=== PATIENT | male | born 1970 | race Caucasian/White ===

== ENCOUNTER → 2018-06-28 | Outpatient (CLI) | payer SELFPAY ==
--- NOTE | 2018-06-28 15:26 | PCVCIMAG ---
APPROVED REPORT Study performed: 06/28/2018 10:55:49 Exam: Stress Echocardiogram Indication: Chest pain , Hypertension Patient Location: Echo lab Stress Nurse: Emily Panchal RN Room #: 2 Status: routine Ht: 5 ft 11 in HR: 80 bpm BP: 118/86 mmHg Rhythm: NSR Medical History Medical History: HTN, Dyslipidemia Cardiac Risk Factors: HTN, FHX of CAD Pretest Chest Pain Characteristics: No chest pain Exercise History: Sedentary Procedure The patient underwent an Exercise Stress Test using the Josiah Protocol. Blood pressure, heart rate, and EKG were monitored. An Echocardiogram was performed by data acquisition technician in four stages in quad fashion. At peak stress, four selected images were obtained and placed side by side with resting images for comparison. Stress Test Details Stress Test: Exercise stress testing was performed using a Josiah protocol. HR Resting HR: 80 bpmMax Heart Rate (APMHR): 172 bpm Max HR Achieved: 155 bpmTarget HR (85% APMHR): 146 bpm % of APMHR: 90 Recovery HR: 96 bpm HR response to stress: Normal HR response to stress BP Resting BP: 118/86 mmHg Max BP: 200/100 mmHg Recovery BP: 136/86 mmHg BP response to stress: Normal blood pressure response to stress. ECG Resting ECG: Sinus Rhythm Stress ECG: Sinus Rhythm ST Change: Non-ischemic Arrhythmia: One PVC couplet Recovery ECG: Sinus Rhythm Recovery ST Change: Non-ischemic Recovery Arrhythmia: None Clinical Reason for Termination: Maximal effort Stress Symptoms: fatigu Exercise duration: 7 min 31 sec Exercise capacity: 10.1 METs Overall Exercise Capacity for Age: Poor Scale: Sedentary Angina Score: None No complications. Stress ECG Conclusion The patient exercised according to the JOSIAH protocol for 7:31 mins; achieving a work level of 10.1 METS. The resting heart rate of 80 bpm elva to a maximum heart rate of 155 bpm. This value represent 90% of the maximal, age-predicted heart rate. The resting blood pressure of 118/86 mmHg, elva to a maximum blood pressure of 200/100 mmHg. The exercise test was stopped due to fatigue. Pre-Stress Echo The resting Echocardiogram showed normal left ventricular contractility with an estimated Ejection Fraction of about 55-60%. Normal wall motion in all segments on baseline images. Post-Stress Echo The stress Echocardiogram showed normal left ventricular contractility with an estimated Ejection Fraction of about 65-70%. Normal augmentation of wall motion in all segments on post stress images. Clinical No clinical or ECG evidence for ischemia. Conclusion Clinical Response: Non-ischemic Exercise Capacity: Below Average Stress ECG Response: Non-ischemic Stress Echo Images: Non-ischemic No clinical, EKG or echocardiographic evidence for ischemia. No echocardiographic evidence for exercise induced ischemia. Normal stress echocardiogram with maximal exercise stress. 1. Low risk study <Conclusion> No clinical, EKG or echocardiographic evidence for ischemia. No echocardiographic evidence for exercise induced ischemia. Normal stress echocardiogram with maximal exercise stress. 1. Low risk study
== END | disposition home or self-care (01) ==
LOC: PCVCIMAG 11:01
PROVIDERS: ATTEND Internal Medicine
DX: R07.9 Chest pain, unspecified (principal); I10 Essential (primary) hypertension; E78.5 Hyperlipidemia, unspecified
CPT/HCPCS: 93325; 93351